=== PATIENT | female | born 1995 | race Caucasian/White ===

== ENCOUNTER 2017-05-04 02:20 | Emergency (ER) | payer SELFPAY ==
[~2017-05-04] VITALS: Ht 162.6 cm; Wt 74.8 kg
[2017-05-04 02:20] VITALS: BP 105/50
[2017-05-04] MEDS ORDERED: IBUPROFEN600 MG ORAL (02:41)
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
[2017-05-04 02:50] VITALS: BP 105/50
--- NOTE | 2017-05-04 10:44 | Diagnostic Imaging Report ---
Indication: Chest pain Comparison: None A single view chest radiograph was obtained. Findings: Cardiomediastinal appearance is within normal limits for age. Pulmonary vascularity is appropriate. The diaphragmatic contour is smooth and costophrenic angles are sharp. No pleural effusions are identified. The bones are unremarkable. Impression: No acute findings
--- NOTE | 2017-05-12 23:20 | Cardiology Report ---
APPROVED REPORT EKG Measurement Heart [id number] Sinus bradycardia with sinus arrhythmia Otherwise normal ECG
== END 2017-05-04 02:50 | disposition home or self-care (01) ==
LOC: EDBD 02:20 → EMR 02:36
DX: S20.219A Contusion of unspecified front wall of thorax, initial encounter (principal); V89.2XXA Person injured in unspecified motor-vehicle accident, traffic, initial encounter; W22.12XA Striking against or struck by front passenger side automobile airbag, initial encounter; Y93.9 Activity, unspecified; Y99.9 Unspecified external cause status; R07.9 Chest pain, unspecified; F41.9 Anxiety disorder, unspecified
CPT/HCPCS: 71010; 93005; 99283